=== PATIENT | female | born 1970 | race African-American/Black ===

== ENCOUNTER 2023-02-04 09:18 | Emergency (ER) | payer BC, OTHER ==
[~2023-02-04] VITALS: Ht 162.6 cm; Wt 81.6 kg
[2023-02-04] MEDS ORDERED: ONDANSETRON 4 MG/2 ML VIAL IV ONE (09:30)
[2023-02-04] MEDS ORDERED: IV NORMAL SALINE 500 ML BAG IV ONE (09:30)
[2023-02-04] MEDS ORDERED: MECLIZINE HCL 25 MG TABLET PO ONE (09:30)
[2023-02-04] MEDS ORDERED: ONDANSETRON 4 MG/2 ML VIAL ONE (09:43)
[2023-02-04] MEDS ORDERED: MECLIZINE HCL 25 MG TABLET ONE (09:43)
[2023-02-04 09:51] LABS: HEMATOCRIT 38.4 % (31.2-41.9); MEAN CORPUSCULAR HEMOGLOBIN 27.8 uug (24.7-32.8); MEAN CORPUSCULAR VOLUME 83.9 fL (75.5-95.3); PLATELET COUNT (AUTO) 473 K/uL (179-408)
--- NOTE | 2023-02-04 10:15 | NUR ---
Pt ambulatory to restroom with steady gait, urine specimen collected and sent to lab.
[2023-02-04 10:43] LABS: BILIRUBIN,TOTAL 0.4 mg/dL (0.2-1.0); CREATININE 0.8 mg/dL (0.6-1.3); MAGNESIUM 1.9 mg/dL (1.8-2.4); PHOSPHOROUS 1.3 mg/dL (2.5-4.9); TOTAL PROTEIN, SERUM 8.4 g/dL (6.4-8.2)
[2023-02-04 10:49] LABS: POTASSIUM 2.8 mmol/L (3.5-5.1)
[2023-02-04 10:55] LABS: *BILIRUBIN,URIN NEGATIVE (NEGATIVE); *CLARITY,URINE SLIGHTLY CLOUDY (CLEAR); *COLOR,URINE Other (YELLOW); *KETONES,URINE TRACE (NEGATIVE); *UROBILINOGEN,URINE 0.2 E.U./dl (NORMAL); LEUKOCYTE ESTERASE ,URINE 1+ (NEGATIVE); NITRITE, URINE NEGATIVE (NEGATIVE); PH,URINE 8.5 (5.0-8.0); UGLUCOSE NEGATIVE (NEGATIVE)
[2023-02-04 10:56] LABS: *BLOOD, URINE TRACE (NEGATIVE)
[2023-02-04 11:03] LABS: BACTERIA,URINE MODERATE /HPF (NONE SEEN); RBC,URINE 0-3 /HPF (0-3); SQUAMOUS EPITHELIAL CELL,UR FEW /HPF (NONE SEEN); WBC,URINE 50-80 /HPF (0-3)
[2023-02-04 11:07] LABS: *AMPHETAMINE, URINE NEGATIVE (NEGATIVE); *CANNABINOID, URINE POSITIVE (NEGATIVE); *COCCAINE, URINE NEGATIVE (NEGATIVE); *PHENCYCLIDINE SCREEN,URINE NEGATIVE (NEGATIVE)
[2023-02-04] MEDS ORDERED: POTASSIUM CHLORIDE 20 MEQ TAB.PRT.SR ONE (11:14)
[2023-02-04] MEDS ORDERED: POTASSIUM CHLORIDE 20 MEQ TAB.PRT.SR PO ONE (11:15)
--- NOTE | 2023-02-04 11:40 | NUR ---
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
--- NOTE | 2023-02-04 11:57 | NUR ---
Repeat lactic acid drawn by client retention specialist.
[2023-02-04] MEDS ORDERED: ESCI20TA44 PO (12:00)
[2023-02-04] MEDS ORDERED: NEUTRA PHOS PACKET PO ONE (12:00)
[2023-02-04] MEDS ORDERED: ALPR1TAB7 PO (12:00)
[2023-02-04] MEDS ORDERED: METO-357 PO (12:00)
--- NOTE | 2023-02-04 13:30 | NUR ---
IV removed. Catheter intact and site benign. Pressure and 4x4 gauze applied to site. No bleeding noted.
[2023-02-04] MEDS ORDERED: NITR-84 PO (13:52)
[2023-02-04 13:56] VITALS: BP 138/87; O2SAT 98
--- NOTE | 2023-02-04 13:56 | NUR ---
Patient discharged to home in stable condition. Written and verbal after care instructions given. Patient verbalizes understanding of instructions. Stressed follow up or return to ER for worsening s/s.
--- NOTE | 2023-02-04 14:55 | NUR ---
Clinical SW Note: SW was consulted by ED in regard to patient feeling unsafe at home and possibly needing resources. SW walked in the room on 02/04 @ 11:35am and continued with confirming patients address and D.O.B for verification. Patient is 52-year-old Black female that presented with an anxious mood and apathetic affect. Patient was cooperative and A&Ox4. Patient began crying and mentioned having high anxiety due to possibly needing future surgery and past surgery she had. Patient mentioned she is currently feeling withdrawal from reducing her Xanax medication that was provided by her therapist. Patient stated she is currently employed, independent, and is usually able to drive, but mentioned she was brought into the ER by ambulance. SW discussed patients living situation and asked her why she felt unsafe at home and patient mentioned it was due to feeling dizzy for the past week and a half and mentioned she fell 3x within the last month. Patient mentioned she admitted herself into [facility] for her fall and their Dr. also mentioned to her she has a black spot on her liver and will need to consult with her PCP. Patient mentioned that has also caused her Anxiety to increase. SW confirmed patient lives alone and has a supporting daughter and family members if needed. SW encouraged patient to ask family to temporarily live with her if feasible. Patient mentioned she will ask them, but does not like to ask them for too much. Patient stated she is able to perform ADLs without any concerns and declined using any DME. SW noted toxicology report was done and concluded patient tested positive for benzodiazepine (Xanax) and THC. Patient mentioned she has a Hx of substance use (Xanax) for her Anxiety, has been using it for the past 5 years and was using Marijuana as it was mentioned to her it can help decrease anxiety. Patient continued with mentioning she stopped using it roughly a month ago because she realized it was not helping her with her Anxiety. Patient mentioned she is currently working with her therapist to withdrawal due to not feeling well and mentioned she is not following the regimen that was provided. SW encouraged the patient through positive affirmations and to try her best to follow the regimen that was given to her. Patient nodded and agreed. SW provided resources for MAT treatment programs for [facility] , [facility] , [facility] , and [facility] . Patient mentioned she is motivated to follow up with centers provided and stated I would like to get better Patient denied having Hx of psychiatric diagnosis. Patient denied suicidal and homicidal ideation. Patient stated her plan for discharge is to go home or over a friends house until she feels safe to be alone in her own home.
== END 2023-02-04 13:57 | disposition home or self-care (01) ==
LOC: ER 09:18
DX: E87.8 Other disorders of electrolyte and fluid balance, not elsewhere classified (principal); N39.0 Urinary tract infection, site not specified; I10 Essential (primary) hypertension; R10.2 Pelvic and perineal pain; Z88.8 Allergy status to other drugs, medicaments and biological substances; Z91.040 Latex allergy status; Z79.899 Other long term (current) drug therapy
CPT/HCPCS: 99285; 96374; 70450; 71045; 96361; 80053; 82248; 83735; 84100; 85025; 84484; 84702; 36415; 93005; 83605 ×2; 87040; 80307; 81001; J2405; J7040; A4663; J8597